=== PATIENT | female | born 1980 | race Caucasian/White ===

== ENCOUNTER 2022-09-15 06:30 | Outpatient (OUT) | payer OTHER, BC, SELFPAY ==
[2022-09-15 07:06] LABS: Basophils Percent Auto 0.5 % (0.2-2.0); Eosinophils Absolute Auto 0.2 10^3/uL (0.0-0.7); Eosinophils Percent Auto 2.4 % (0.9-7.0); Hematocrit 37.8 % (36.0-48.0); Hemoglobin 12.9 g/dL (12.0-16.0); Immature Granulocytes Abs Auto 0.02 10^3/uL (0.00-0.03); Immature Granulocytes Pct Auto 0.3 % (0.0-0.5); Lymphocytes Absolute Auto 2.5 10^3/uL (1.2-3.8); Lymphocytes Percent Auto 31.8 % (20.5-60.0); Mean Corpuscular HGB Conc 34.1 g/dL (29.9-35.2); Mean Corpuscular Hemoglobin 28.5 pg (26.7-34.0); Mean Corpuscular Volume 83.4 fL (81.0-99.0); Monocytes Absolute Auto 0.4 10^3/uL (0.3-0.8); Monocytes Percent Auto 5.1 % (1.7-12.0); Neutrophils Absolute Auto 4.7 10^3/uL (1.4-6.5); Neutrophils Percent Auto 59.9 % (43.0-75.0); Platelet Count 329 10^3/uL (150-450); Red Blood Count 4.53 10^6/uL (4.20-5.40); Red Cell Distribution Width 13.2 % (11.0-15.0); White Blood Count 7.9 10^3/uL (4.0-11.0)
[2022-09-15 07:12] LABS: Alanine Aminotransferase 27 U/L (14-59); Albumin Level 3.6 g/dL (3.4-5.0); Alkaline Phosphatase 67 U/L (46-116); Anion Gap 9.8; Aspartate Amino Transferase 35 U/L (15-37); BUN Creatinine Ratio 17.9; Bilirubin Total 0.8 mg/dL (0.2-1.0); Calcium 8.7 mg/dL (8.5-10.1); Carbon Dioxide 28.7 mmol/L (21.0-32.0); Chloride 102 mmol/L (98-107); Estimated GFR (African America >60 (>=60); Estimated GFR (Non-African Ame >60 (>=60); Globulin 3.5 g/dL; Glucose 91 mg/dL (74-106); Magnesium 2.2 mg/dL (1.8-2.4); Phosphorus 3.9 mg/dL (2.6-4.7); Potassium 5.5 mmol/L (3.5-5.1); Sodium 135 mmol/L (136-145); Total Protein 7.1 g/dL (6.4-8.2)
[2022-09-15 07:48] LABS: Percent Iron Saturation 16.6 %
[2022-09-17 20:07] LABS: Vitamin B1 (Thiamine), Blood 127.1 nmol/L (66.5-200.0)
== END 2022-09-15 06:31 | disposition home or self-care (01) ==
PROVIDERS: PCP Family Medicine
DX: Z98.84 Bariatric surgery status (principal); K90.9 Intestinal malabsorption, unspecified; R60.9 Edema, unspecified
CPT/HCPCS: 36415; 80053; 82306; 82607; 82728; 82746; 83540; 83550; 83735; 84100; 84425; 85025